=== PATIENT | female | born 1970 | race Caucasian/White ===

== ENCOUNTER 2021-06-25 22:42 | Emergency (ER) | payer BC ==
[~2021-06-25] VITALS: Ht 162.6 cm; Wt 108.9 kg
[2021-06-25] MEDS ORDERED: TOPAMAX100 MG PO (23:11)
[2021-06-25] MEDS ORDERED: ESTRACE0.5 MG PO (23:11)
[2021-06-25 23:49] LABS: BASOPHILS 0.3 %; LYMPHOCYTES 13.4 %; NUCLEATED RBCS 0 /100WBC; PLATELET COUNT* 361 thou/uL (150-400)
[2021-06-25 23:51] LABS: ABSOLUTE EOSINOPHILS 0.2 thou/uL (0.0-0.7); ABSOLUTE LYMPHOCYTES 1.6 thou/uL (0.8-5.3); ABSOLUTE MONOCYTES 0.6 thou/uL (0.0-1.2); ABSOLUTE NEUTROPHILS 9.3 thou/uL (1.6-8.1); EOSINOPHILS 1.4 %; HEMATOCRIT 35.7 % (37.0-47.0); MCH 28.8 pg (26.0-34.0); MCHC 33.6 g/dL (28.0-37.0); MCV 85.7 fL (80.0-100.0); MONOCYTES 5.3 %; MPV 6.1 fl. (7.2-11.1); POLYS 79.6 %; RBC 4.17 mil/uL (4.20-5.00); RDW-CV 13.7 % (10.5-14.5); WBC 11.6 thou/uL (4.0-11.0)
[2021-06-25 23:54] LABS: CALCIUM 8.6 mg/dL (8.5-10.1); CREATININE 0.8 mg/dL (0.6-1.3); POTASSIUM 3.9 mmol/L (3.5-5.1)
[2021-06-25 23:58] LABS: ALBUMIN 3.3 g/dL (3.4-5.0); TOTAL BILIRUBIN 0.4 mg/dL (<0.1-1.0); TOTAL PROTEIN 7.8 g/dL (6.4-8.2)
[2021-06-26] LABS: URINE BILIRUBIN NEGATIVE (Negative); URINE BLOOD NEGATIVE (Negative); URINE CLARITY CLOUDY; URINE COLOR YELLOW; URINE GLUCOSE-RANDOM NEGATIVE (Negative); URINE KETONES NEGATIVE (Negative); URINE LEUKOCYTES-REFLEX 1+ (Negative); URINE NITRITE-REFLEX NEGATIVE (Negative); URINE PROTEIN NEGATIVE (Negative); URINE UROBILINOGEN 0.2 E.U./dl (0.2-1.0)
[2021-06-26 00:22] LABS: AMORPHOUS URATES Many /LPF (None Seen); CASTS None Seen /LPF (None Seen); MUCUS 4-6 Moderate strn/LPF (None Seen); SQUAMOUS 0-3 Few /LPF (0-3); URINE RBC 3-10 Few /HPF (0-2); URINE WBC-REFLEX 6-15 Few /HPF (0-5)
[2021-06-26] MEDS ORDERED: HYDROCODON-ACE1 EAC7 PO (02:53)
[2021-06-26] MEDS ORDERED: ZOFRAN ODT4 MG PO (02:53)
[2021-06-26 03:09] VITALS: BP 148/79
--- NOTE | 2021-06-26 10:47 | EKG ---
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
== END 2021-06-26 03:09 | disposition home or self-care (01) ==
LOC: M.ERS 22:42
PROVIDERS: Personal Emergency Response Attendant
DX: R10.11 Right upper quadrant pain (principal); Z90.49 Acquired absence of other specified parts of digestive tract; Z79.899 Other long term (current) drug therapy; Z88.5 Allergy status to narcotic agent; Z88.0 Allergy status to penicillin; Z88.2 Allergy status to sulfonamides; Z88.6 Allergy status to analgesic agent